=== PATIENT | female | born 1995 | race Caucasian/White ===

== ENCOUNTER 2019-01-28 13:35 | Emergency (ER) | payer BC ==
[2019-01-28 13:47] VITALS: O2SAT 100
[2019-01-28 17:13] VITALS: BP 113/69; TEMP 99
== END 2019-01-28 17:15 | disposition short-term general hospital (02) ==
LOC: ER 13:35
DX: O99.89 Other specified diseases and conditions complicating pregnancy, childbirth and the puerperium (principal); R10.9 Unspecified abdominal pain; Z3A.01 Less than 8 weeks gestation of pregnancy; Z90.49 Acquired absence of other specified parts of digestive tract; Z87.440 Personal history of urinary (tract) infections; Z87.42 Personal history of other diseases of the female genital tract
CPT/HCPCS: 36415; 80053; 81001; 84702; 84703; 85025; 86901; 87086; J7120